=== PATIENT | female | born 1980 | race American Indian/Alaskan Native ===

== ENCOUNTER 2017-02-20 18:36 | Emergency (ER) | payer OTHER ==
--- NOTE | 2017-02-20 19:05 | Emergency Department Report ---
Stated Complaint: POSS ALLERGIC REACTION Time Seen by Provider: 02/20/17 18:59 - HPI History of Present Illness: PT states she was started on a 21 day steroid dose pack for "inflammation" on Sunday after being seen in the ED on Sunday. PT states she was seen for chest pain. PT states she called PCP yesterday and told her that she thinks she was having an allergic reaction and she was advised to start Benadryl PT states she is still having chest pain PT states today she felt like her throat was swelling - ROS Review of Systems: + nausea + chest pain + swollen throat - Exam Physical Exam: pt looks well, non toxic no swelling to uvula noted no acute resp distress MSE screening note: Focused history and physical exam performed. Due to findings the following was ordered: xr, ekg, lab ED Disposition for MSE Condition: Stable
[2017-02-20 19:08] VITALS: BP 133/94
[2017-02-20 19:44] LABS: Basophils % (Auto) 0.7 % (0.0-1.8); Eosinophils % (Auto) 0.4 % (0.0-4.3); Hematocrit 41.4 % (30.3-42.9); Hemoglobin 14.1 gm/dl (10.1-14.3); Mean Corpuscular HGB Conc 34 % (30-34); Mean Corpuscular Hemoglobin 32 pg (28-32); Mean Corpuscular Volume 93 fl (79-97); Platelet Count 316 K/mm3 (140-440); Red Blood Count 4.46 M/mm3 (3.65-5.03); Red Cell Distribution Width 13.3 % (13.2-15.2); White Blood Count 10.2 K/mm3 (4.5-11.0)
[2017-02-20 19:55] LABS: Anion Gap 22 mmol/L; Blood Urea Nitrogen 8 mg/dL (7-17); Calcium 9.4 mg/dL (8.4-10.2); Carbon Dioxide 21 mmol/L (22-30); Chloride 101.8 mmol/L (98-107); Glucose 89 mg/dL (65-100); Potassium 3.9 mmol/L (3.6-5.0); Sodium 141 mmol/L (137-145)
--- NOTE | 2017-02-21 08:17 | XRay Report ---
ROUTINE CHEST, TWO VIEWS: HISTORY: chest pain. The trachea, heart, mediastinal contour, lung chamberlain and bony thorax are unremarkable. IMPRESSION: Unremarkable chest x-ray.
== END 2017-02-20 20:45 | disposition left against medical advice (07) ==
LOC: ED 18:36
DX: Z53.21 Procedure and treatment not carried out due to patient leaving prior to being seen by health care provider (principal)
CPT/HCPCS: 36415; 71020; 80048; 84484; 85025

== ENCOUNTER 2022-03-07 09:28 | Outpatient (CLI) | payer OTHER ==
--- NOTE | 2022-03-07 10:51 | XRay Report ---
CERVICAL SPINE 3 VIEWS INDICATION / CLINICAL INFORMATION: Z02.71 neck pain. COMPARISON: None available. FINDINGS: BONES / JOINT(S): There is moderate degenerative disc disease at C4-5 and C5-6. Minimal degenerative disc disease is present at C6-7. There are associated hypertrophic changes involving the uncovertebra l joints at those levels, greater on the left. I see no evidence of acute fracture, subluxation or de structive lesion. SOFT TISSUES: The prevertebral soft tissues are normal. ADDITIONAL FINDINGS: The lung apices are clear. IMPRESSION: Moderate spondylosis without acute abnormality. LUMBOSACRAL SPINE 3 VIEWS INDICATION / CLINICAL INFORMATION: Z02.71 low back pain. COMPARISON: None available. FINDINGS: BONES / JOINT(S): There is minimal spondylosis. The pedicles are intact and the SI joints are normal. There is no evidence of acute fracture, subluxation or destructive lesion. SOFT TISSUES: No significant abnormality. ADDITIONAL FINDINGS: There are bilateral iliac vein endovascular stent grafts. The gallbladder is gege gically absent. IMPRESSION: No acute findings. Signer Name: Mark Kimball MD Signed: 03/07/2022 10:47 AM Workstation Name: [id number]
== END 2022-03-07 09:29 | disposition home or self-care (01) ==
LOC: XRAY 09:28
PROVIDERS: ATTEND Internal Medicine
DX: M50.323 Other cervical disc degeneration at C6-C7 level (principal); M50.322 Other cervical disc degeneration at C5-C6 level; M50.321 Other cervical disc degeneration at C4-C5 level; M47.812 Spondylosis without myelopathy or radiculopathy, cervical region; M54.50 Low back pain, unspecified
CPT/HCPCS: 72040; 72100